=== PATIENT | female | born 1955 | race Caucasian/White ===

== ENCOUNTER 2016-06-24 19:15 | Emergency (ER) | payer OTHER ==
[2016-06-24 19:30] VITALS: BP 119/79
--- NOTE | 2016-06-24 19:37 | PROVIDER DOCUMENTATION ---
HPI-General Adult - General Chief Complaint: Extremity Injury Stated Complaint: FOOT INJURY Time Seen by Provider: 06/24/16 19:24 Source: patient Allergies/Adverse Reactions: Patient Allergies Allergy/AdvReac Type Severity Reaction Status Date / Time adhesive tape AdvReac HIVES Verified 06/24/16 19:30 Home Medications: Home Medication List Medication Instructions Recorded Confirmed Last Taken Type Duloxetine [Cymbalta] 60 mg PO DAILY 06/24/16 06/24/16 Unknown History Fentanyl 25 Microgm/Hr Patch 06/24/16 Unknown History [Duragesic 25 Microgm/Hr Patch] Lorazepam [Ativan] 0.5 mg PO 06/24/16 Unknown History Oxycodone/APAP 10 mg/325 mg 1 each PO Q4H PRN PRN #14 tablet 06/24/16 Unknown Rx [Percocet-10] Oxycodone/APAP 10 mg/325 mg 10 mg PO 06/24/16 Unknown History [Percocet-10] - History of Present Illness -Gen Adult Nature of Presenting Problems: Pt. is 61 yof that presents with c/o left foot pain. Pt. reports she stepped off of a curb last night and turned her left foot. Pt. denies any pain in the ankle bur states her foot is now swollen and bruised. Pt. reports no other injury and states she cannot walk on her foot. Location of Pain/Injury: reports: feet (Left). denies: head, face, mouth, neck , chest, upper extremity, hand(s), abdomen, back, pelvis, genitalia, lower extremity, upper body, lower body, generalized Pain Radiation: reports: no radiation Quality of Pain: reports: aching. denies: burning, cramping, dull, fullness, indigestion, pressure, sharp, stabbing, tearing, throbbing, tightness Severity: reports: moderate. denies: mild, severe Onset/Duration: reports: abrupt, last night Timing: reports: still present. denies: improving, gone now, resolved prior to arrival, intermittent, constant, changing over time, getting worse Context/Activities at Onset: reports: light activity, recent trauma history. denies: recent emotional stress, recent physical stress, possible bad food, cold exposure, out of country travel Modifying Factors: improves with: nothing Associated Symptoms: reports: joint pain, trouble walking. denies: anxiety, arm pain, back/neck pain, chest pain, constipation, cough, diaphoresis, diarrhea , dizziness, EENT symptoms, fatigue, fever/chills, genitourinary problems, headaches, heartburn, loss of appetite, malaise, muscle aches, sinus congestion/ drainage, nausea, rash, seizure, shortness of breath, sensory/motor loss, pain with inspiration, swelling/mass in abdomen, syncope, vomiting, weakness Similar Symptoms Previously?: Yes Recently seen or treated by another doctor?: No Review of Systems - Adult - REVIEW OF SYSTEMS - ADULT Constitutional: reports: see HPI. denies: chills, fever, fatique Eyes: reports: see HPI. denies: discharge, blurred vision, double vision Ears, Nose, Mouth & Throat: reports: see HPI. denies: ear discharge, ear pain, hearing loss, sinus problem, nose pain, loose teeth, mouth/dental pain, throat swelling Cardiovascular: reports: see HPI. denies: chest pain, irregular heart rate, orthopnea, syncope Respiratory: reports: see HPI. denies: cough, dyspnea on exertion, pleurisy, shortness of breath, wheezing Gastrointestinal: reports: see HPI. denies: abdominal pain, hematemesis, diarrhea, nausea, vomiting Genitourinary: reports: see HPI. denies: dysuria, discharge, hematuria, hesitency, urgency Musculoskeletal: reports: see HPI, bone pain (Left foot), joint pain (Left foot) . denies: back pain, muscle aches, neck pain Integumentary: reports: see HPI. denies: hives, itching, rash, skin thickening Neurological: reports: see HPI. denies: ataxia, headache/migraines, numbness, paresthesia, seizure, tremors Psychiatric: reports: see HPI. denies: anxiety, depression, emotional problems , insomnia, panic attacks, suicidal thoughts Past History - Adult - PAST MEDICAL HISTORY-ADULT Review of Records: reports: Old Records Reviewed, Nursing Assessment Review, Medications Reviewed, Social history reviewed & non-contributory. - IMMUNIZATION STATUS Childhood Immunizations: See Nurse Assessment Flu Vaccine: See Nurse Assessment - FAMILY HISTORY Family History: reviewed, not pertinent - SOCIAL HISTORY Smoking: cigarettes, greater than 1 pack/day Provider spent 3-5 mins advising pt. on dangers of tobacco.: Discussed the need to stop smoking. Physical Exam-General - PHYSICAL EXAM-ADULT Initial Vital Signs Reviewed: Yes - CONSTITUTIONAL General Appearance: alert, moderate distress, thin. negative: obese, anxious, lethargic, slow to respond, obtunded, combative - EYES Eyes: PERRL/EOMI, pink conjunctivae. negative: conjuctival exudate, scleral icterus, subconjunctival hemorrhage - HEAD, EARS, NOSE, MOUTH & THROAT HENMT: normocephalic/atraumatic, moist mucous membranes. negative: angioedema, frontal tenderness, maxillary tenderness - NECK Neck: non-tender, full range of motion, supple, normal inspection. negative: lymphadenopathy, trachial deviation, thyromegaly - RESPIRATORY Respiratory: lungs clear, normal breath sounds. negative: crackles, rales, rhonchi, stridor, wheezing - CARDIOVASCULAR Cardiovascular: normal peripheral pulses, regular rate, rhythm, no edema, no JVD , no murmur. negative: extra beats, friction rub, irregularly irregular - CHEST (BREASTS) Chest/Breast: deferred - GASTROINTESTINAL (ABDOMEN) Abdominal Exam: normal bowel sounds, non tender, soft. negative: distended, guarding, rigid, rebound, tenderness, hernia, mass - GENITOURINARY Female Genitalia/Pelvic Exam: deferred Rectal Exam: deferred Hemoccult Exam: deferred - LYMPHATIC Lymphatic: no adenopathy. negative: axilla node tender, cervical node tenderness - MUSCULOSKELETAL Back Exam: normal inspection, no CVA tenderness, no vertebral tenderness. negative: ecchymosis, scoliosis, swelling, vertebral tenderness Extremity: erythema (Left foot), inflammation (Left foot), swelling (Left foot) , tenderness (Left foot). negative: normal gait, normal inspection, deformity Peripheral Pulses: radial (R): 2+, radial (L): 2+ - SKIN Integumentary: normal color, normal turgor, warm/dry, ecchymosis (Left foot), erythema (Left foot), swelling (Left foot), tenderness (Left foot). negative: cyanosis, jaundice, mottled, pallor, petechiae, purpura, rash - NEUROLOGIC Neurologic: grossly normal, no motor/sensory deficits. negative: aphasia, facial droop, focal weakness, motor weakness, sensory deficit - PSYCHIATRIC Psych/Mental Status: normal mood/affect, normal thought content, normal thought process, oriented x 3. negative: anxious, paranoid, tearful Progress - PLAN OF CARE/RESULTS Progress/Plan/Lab Results: Discussed results and plan of care with patient. Patient agrees with plan and verbalizes understanding. Vital Signs Temp Pulse Resp BP Pulse Ox 06/24/16 19:24 98 F 86 18 119/79 99 adhesive tape Adverse Reaction (Verified 06/24/16 19:30) HIVES Duloxetine [Cymbalta] 60 mg PO DAILY 06/24/16 Fentanyl 25 Microgm/Hr Patch [Duragesic 25 Microgm/Hr Patch] 06/24/16 Lorazepam [Ativan] 0.5 mg PO 06/24/16 Oxycodone/APAP 10 mg/325 mg [Percocet-10] 10 mg PO 06/24/16 Orders Category Date Time Status FOOT COMPLETE LEFT [RAD] Stat Exams 06/24/16 19:32 Taken - XRAY 1 XRAY: Left XRAY Study: Foot XRAY Interpretation: Displaced Mid shaft Fx of the 5th metatarsal ([place]) Procedures - SPLINTING Left 5th Digit Other Location: Left 5th midshaft metatarsal Pre-Procedure Neurovascular Exam: Intact Splint Application (Hand-Made): Posterior OCL Applied By: ED Nurse Assisted By: Mid-level Post Procedure Neurovascular Exam: Intact Departure - Departure Time of Disposition Order: 20:43 DIAGNOSIS: Metatarsal bone fracture Qualifiers: Encounter type: initial encounter Metatarsal bone: fifth Fracture type: closed Fracture alignment: displaced Laterality: left Qualified Code(s): S92.352A - Displaced fracture of fifth metatarsal bone, left foot, initial encounter for closed fracture Disposition: HOME 01 Certified Medical Emergency: Emergent Condition: Stable Additional Instructions: Follow up with primary care physician Follow up with orthopedic physician Take medications as directed Elevate and ice affected limb several times per day Return to ED for any concerns or worsening of symptoms ED Follow Up Instructions: You have been treated by a care provider in the Emergency Department. These instructions are being provided to you so you can have an understanding of how to care for yourself upon discharge. Upon discharge from the Emergency Department, you are responsible for making arrangements for follow-up care by a physician of your choice. Take all prescribed medications as directed. Return to the Emergency Department immediately for any new or worsening symptoms. You may call the Physician Referral phone number at [phone] to obtain a list of Physicians who are taking new patients. Prescriptions: Oxycodone/APAP 10 mg/325 mg [Percocet-10] 1 each PO Q4H PRN PRN #14 tablet PRN Reason: Pain Referrals: Caity Desouza MD [Primary Care Provider] - Asad Gonsalves MD [STAFF PHYSICIAN] - Attestation - Physician/ INDERJIT Attestation Patient care was provided by Advanced Practice Provider:: Yes Advanced Practice Provider:: Lindy Mojica Advanced Practice Provider documentation review:: The Mid-level provider documentation, treatment plan and medical decision making was reviewed by the physician who agrees with all treatment and medical decision making by the MLP.
[2016-06-24] MEDS ORDERED: PERCOCET-10 PO ONE (20:42)
--- NOTE | 2016-06-25 09:34 | Diag Imaging Result Document ---
PROCEDURE NAME: FOOT COMPLETE LEFT - 06/24/2016 LEFT FOOT, 3 VIEWS: FINDINGS: There is a fracture of the distal 5th metacarpal. There is pes cavus. IMPRESSION: Fracture 5th metacarpal.
== END 2016-06-24 21:18 | disposition home or self-care (01) ==
LOC: P.ED 19:15
DX: S92.352A Displaced fracture of fifth metatarsal bone, left foot, initial encounter for closed fracture (principal); M79.672 Pain in left foot; F17.210 Nicotine dependence, cigarettes, uncomplicated; Z71.6 Tobacco abuse counseling; X58.XXXA Exposure to other specified factors, initial encounter; Z79.899 Other long term (current) drug therapy

== ENCOUNTER 2016-11-12 20:52 | Inpatient (IN) ==
--- NOTE | 2016-11-12 22:20 | Diag Imaging Result Doc PS360 ---
EXAM: RIBS UNILAT W/PA CHEST LEFT HISTORY: fall TECHNIQUE: Chest and left rib detail, three views COMPARISON: None. FINDINGS: No contusion or pneumothorax. The mediastinum is not widened. There has been prior surgery to the lower neck. There are multiple old left rib fractures. There are acute displaced fractures to the posterior lateral left fourth, fifth, sixth, and seventh ribs. IMPRESSION: Multiple new left rib fractures. Electronically signed by Manuel Mascorro 11/12/2016 10:18 PM
[2016-11-12] MEDS ORDERED: ZOFRAN IV ONE (22:38)
[2016-11-12] MEDS ORDERED: DILAUDID IV ONE (22:38)
[2016-11-12 23:27] LABS: MANUAL DIFF NEEDED? NO
--- NOTE | 2016-11-12 23:32 | Diag Imaging Result Doc PS360 ---
EXAM: CERVICAL SPINE W/O CONTRAST HISTORY: neck pain TECHNIQUE: COMPARISON: None. FINDINGS: There has been extensive surgery to the lower cervical spine with fusion of the lower three cervical vertebra. There is metallic artifact from an anterior plate and screws. There is mild scoliosis. No precervical soft tissue swelling. No subluxation. No fracture. No disc herniation. There are posterior bone spurs at C4-5 with at least mild spinal stenosis. IMPRESSION: 1.No fracture 2.No disc herniation 3.Scoliosis with degenerative changes and fusion of the lower three cervical vertebra Electronically signed by Manuel Mascorro 11/12/2016 11:30 PM
[2016-11-12 23:34] LABS: BASO% 0.2 % (0.0-0.8); HEMATOCRIT 41.7 % (37.0-47.0); HEMOGLOBIN 14.3 g/dL (12.0-16.0); IMM GRAN# 0.02 X1000 (0.0-0.04); IMM GRAN% 0.2 % (0.0-0.5); LYMPH% 14.6 % (20.5-51.1); MCH 32.3 PG (27-31); MCHC 34.3 g/dL (33-37); MCV 94.1 FL (81-99); MONO# 0.61 X1000 (0.11-0.59); MONO% 6.3 % (1.7-9.3); MPV 9.6 FL (7.4-10.4); NEUT% 78.7 % (42.2-75.2); PLT 224 X1000 (130-400); RBC 4.43 XMIL (4.2-5.4)
[2016-11-12 23:42] LABS: AGAP 13; BUN 13 mg/dL (8-22); CALCIUM 9.3 mg/dL (8.8-10.2); CHLORIDE 99 mmol/L (98-107); COSMO 271; SODIUM 135 mmol/L (136-145); TCO2 23 mmol/L (25-35)
--- NOTE | 2016-11-12 23:49 | PROVIDER DOCUMENTATION ---
This chart was entered by Meli Bill Scribe, acting as scribe for Hector Singh MD. HPI-Musculoskeletal Pain/Inj - GENERAL Chief Complaint: Fall Stated Complaint: FALL AT HOME Time Seen by Provider: 11/12/16 22:24 Source: patient - HX OF PRESENT ILLNESS-MUSKULOSKELTAL Nature of Presenting Problem: 61 year old F presents to the ED with a cc of a fall around 1800 this evening. Pt states that she was standing on a chair and fell off the chair landing on her left side. Pt c/o left elbow, back, and left rib pain. Quality of Pain: reports: aching Severity in ED: moderate Onset/Duration: this evening Timing: still present Modifying Factors: worse with: palpation, other (breathing) Any recent injury?: Yes Locality of [place]: Home Similar Symptoms Previously?: No Recently seen or treated by another doctor?: No - FALL INJURY Location of Pain/Injury: reports: neck, chest, upper extremity, back Reason for Fall: reports: lost balance Symptoms prior to fall:: reports: none Loss of Consciousness: no loss of consciousness Injury Associated Symptoms: reports: muscle aches, nausea, pain with inspiration Review of Systems - Adult - REVIEW OF SYSTEMS - ADULT Constitutional: reports: no symptoms reported Eyes: reports: no symptoms reported Ears, Nose, Mouth & Throat: reports: no symptoms reported Cardiovascular: denies: chest pain, palpitations Respiratory: denies: cough, shortness of breath Gastrointestinal: reports: nausea. denies: vomiting Musculoskeletal: reports: bone pain, joint pain. denies: muscle aches, muscle weakness Past History - Adult - PAST MEDICAL HISTORY-ADULT Review of Records: reports: Old Records Reviewed, Nursing Assessment Review, Medications Reviewed, Social history reviewed & non-contributory. Major Childhood Illnesses: reports: denies history - IMMUNIZATION STATUS Childhood Immunizations: See Nurse Assessment Flu Vaccine: See Nurse Assessment - FAMILY HISTORY Family History: reviewed, not pertinent Physical Exam-Injury Related - Physical Exam-Injury Related Initial Vital Signs Reviewed: Yes General Appearance: appears well, alert, no apparent distress Immobilization?: C-collar, applied in ED Eyes: PERRL/EOMI, pink conjunctivae Head, Ears, Nose, Mouth & Throat: moist mucous membranes Neck: C-spine tenderness Respiratory: lungs clear, normal breath sounds, rib tenderness (left lateral chest wall tenderness) Cardiovascular: normal peripheral pulses, regular rate, rhythm, no edema Abdominal Exam: non tender, soft Extremity: tenderness (left elbow) Integumentary: normal color, warm/dry Psych/Mental Status: normal mood/affect, normal thought content, normal thought process, oriented x 3 Progress - PLAN OF CARE/RESULTS Progress/Plan/Lab Results: Vital Signs - 8 hr 11/12/16 21:26 Temperature 99.5 F Pulse Rate 95 H Respiratory Rate 18 Blood Pressure 141/89 O2 Sat by Pulse Oximetry 92 L Laboratory Results - last 24 hr 11/12/16 11/12/16 23:10 23:10 WBC 9.62 RBC 4.43 Hgb 14.3 Hct 41.7 MCV 94.1 MCH 32.3 H MCHC 34.3 RDW Std Deviation 12.2 Plt Count 224 MPV 9.6 Immature Gran % (Auto) 0.2 Neut % (Auto) 78.7 H Lymph % (Auto) 14.6 L [place] % (Auto) 6.3 Eos % (Auto) 0.0 Baso % (Auto) 0.2 Immature Gran # (Auto) 0.02 Neut # (Auto) 7.57 H Lymph # (Auto) 1.40 [place] # (Auto) 0.61 H Eos # (Auto) 0.00 Baso # (Auto) 0.02 Sodium 135 L Potassium 4.0 Chloride 99 Carbon Dioxide 23 L Anion Gap 13 BUN 13 Creatinine 0.9 Estimated GFR/1.73 m2 > 60 BUN/Creatinine Ratio 14 Glucose 110 H Calculated Osmolality 271 Calcium 9.3 Orders Category Date Time Status Admit - [facility] Routine AdmDCTranf 11/13/16 00:40 Ordered Activity - Bed Rest with BRP ORDERED Care 11/13/16 00:40 Active Apply C-Collar DIRECTED Care 11/12/16 22:38 Active Resuscitation Status Routine Care 11/13/16 00:40 Ordered Saline Loc DIRECTED Care 11/13/16 00:40 Active Use Oxygen.Protocol ORDERED Care 11/12/16 22:42 Active Vital Signs Order Q 4-HR ASSESS Care 11/13/16 00:40 Active Heart Healthy Diet Diet 11/13/16 00:42 Active ADDITIONAL MPLANAR/3D RECONST [CT] Stat Exams 11/12/16 22:40 Taken CERVICAL SPINE W/O CONTRAST [CT] Stat Exams 11/12/16 22:[address] THORAX W/O CONTRAST [CT] Stat Exams 11/12/16 22:40 Completed LUMBAR SPINE W/O CONTRAST [CT] Stat Exams 11/12/16 22:39 Completed RIBS UNILAT W/PA CHEST LEFT [RAD] Stat Exams 11/12/16 21:28 Completed BMP [BASIC METABOLIC PANEL] [CHEM] Stat Lab 11/12/16 23:10 Completed CBC WITH ELECTRONIC DIFF [HEME] Stat Lab 11/12/16 23:10 Completed 0.9% Sodium Chloride Inj [Ns] 1,000 ml Med 11/13/16 00:40 Active IV 100 mls/hr Hydromorphone [Dilaudid] Med 11/13/16 00:40 Active 0.5 mg IV Q2H PRN PRN Hydromorphone [Dilaudid] Med 11/12/16 22:38 Discontinued 1 mg IV NOW ONE Ondansetron [Zofran] Med 11/12/16 22:38 Discontinued 4 mg IV NOW ONE Ondansetron [Zofran] Med 11/13/16 00:40 Active 4 mg IV Q4H PRN PRN Oxygen Device Routine Oth 11/13/16 00:41 Active Telemetry [OM.EQ] Routine Oth 11/13/16 00:40 Active Transfer/Admit Order [TRANSFER] Routine Transfer 11/13/16 00:45 Ordered Result Diagrams: 11/12/16 23:10 11/12/16 23:10 - XRAY 1 XRAY Study: Chest (ribs unilateral) Impression: Abnormal XRAY Interpretation: multiple new left rib fractures: Dr. Mascorro(radiologist) - CT/MRI 1 CT Study: Thorax Impression: Abnormal (multiple fractures involving the left 3rd-7th ribs: Dr. Mascorro(radiologist)) CT Results: multiple fractures involving the left 3rd-7th ribs: Dr. Mascorro( radiologist) 2 CT Study: Cervical Spine Impression: Normal (No fracture. No disc herniation. Scoliosis with degenerative changes and fusion of the lower three cervical vertebra: Dr. Mascorro( radiologist)) 3 CT Study: Lumbar Spine Impression: Normal CT Results: no acute bony injury: Dr. Mascorro(radiologist) - CONSULTS/PCP/HOSPITALIST Notification #1 *Consult/PCP/Hospitalist*: Dr. Dawit Time Discussed: 00:18 Consult Disposition: Admit Departure - Departure Date of Disposition Decision: 11/13/16 Time of Disposition Decision: 00:50 DIAGNOSIS: Multiple fractures of ribs of left side Qualifiers: Encounter type: initial encounter Fracture type: closed Qualified Code(s): S22.42XA - Multiple fractures of ribs, left side, initial encounter for closed fracture Left pulmonary contusion Qualifiers: Encounter type: initial encounter Qualified Code(s): S27.321A - Contusion of lung, unilateral, initial encounter Disposition: ADMITTED INPATIENT 09 Certified Medical Emergency: Emergent Condition: Stable Referrals and Follow-Ups: Caity Desouza MD [Primary Care Provider] - - Critical Care Note This patient required my direct & personal management of CC.: Yes This chart was documented by the indicated scribe, (Meli Bill Scribe) and accurately reflects the services I performed and decisions made by me, Hector Singh MD, as attested by the provider's signature.
--- NOTE | 2016-11-12 23:53 | Diag Imaging Result Doc PS360 ---
EXAM: CT THORAX W/O CONTRAST HISTORY: left rib fractures TECHNIQUE: COMPARISON: None. FINDINGS: There are emphysematous changes. No pneumothoraces. Trace left pleural fluid or pleural thickening. No cardiomegaly. There are scattered calcified lymph nodes with multiple scattered calcified granuloma. There is a nondisplaced fracture to the posterior left third rib and fourth rib. There is also a nondisplaced fracture laterally involving the third rib and a displaced fracture laterally to the fourth rib. The fifth, sixth, and seventh ribs are also fractured laterally. Tiny lateral left lung contusion. IMPRESSION: Multiple fractures involving the left third through seventh ribs. Electronically signed by Manuel Mascorro 11/12/2016 11:51 PM
--- NOTE | 2016-11-12 23:57 | Diag Imaging Result Doc PS360 ---
EXAM: LUMBAR SPINE W/O CONTRAST HISTORY: fall,back pain TECHNIQUE: COMPARISON: None. FINDINGS: There has been prior fusion of the L4 and L5 vertebra. There is metallic artifact created by the orthopedic hardware. Degenerative bone spurring is found throughout the lumbar spine. No subluxation. No compressed vertebra. No other fracture. No disc herniation identified although there is spinal stenosis at L3-L4 primarily due to facet hypertrophy. IMPRESSION: No acute bony injury. Electronically signed by Manuel Mascorro 11/12/2016 11:55 PM
[2016-11-13] MEDS ORDERED: NS 1,000 ML IV ONE (00:40)
[2016-11-13] MEDS: DILAUDID IV PRN ×7 (01:49→20:49)
--- NOTE | 2016-11-13 06:00 | Diag Imaging Result Doc PS360 ---
EXAM: ADDITIONAL MPLANAR/3D RECONST Thoracic Spine HISTORY: back pain TECHNIQUE: COMPARISON: None. FINDINGS: Mild scoliosis. No compressed vertebra. No other fracture to the thoracic spine. Mild degenerative changes. Left rib fractures are again demonstrated. IMPRESSION: No fracture to the thoracic spine. Electronically signed by Manuel Mascorro 11/13/2016 5:57 AM
[2016-11-13] MEDS ORDERED: DILAUDID IV PRN (07:07)
[2016-11-13] MEDS: PRILOSEC PO SCH (11:51)
[2016-11-13] MEDS: PERCOCET-10 PO PRN ×2 (12:15→12:23)
[2016-11-13] MEDS: ZOFRAN IV PRN ×2 (13:38→18:22)
[2016-11-13] MEDS ORDERED: NICODERM PATCH TD ONE (13:49)
--- NOTE | 2016-11-13 15:47 | HISTORY AND PHYSICAL ---
PRIMARY CARE PHYSICIAN: Dr. Caity Desouza. CHIEF COMPLAINT: Fall, left side pain. HISTORY OF PRESENT ILLNESS: This is a 61-year-old female with a history of chronic back pain who presented to the emergency room after falling out of a chair landing on her left side. She was found to have multiple fractures involving the left 3rd through 7th ribs as well as a tiny lateral left lung contusion. She was given Dilaudid in the emergency room and is being admitted for further evaluation and treatment. PAST MEDICAL HISTORY: Chronic back pain and arthritis. PAST SURGICAL HISTORY: Tubal ligation, tonsillectomy and back surgeries. SOCIAL HISTORY: She smokes daily. She denies alcohol or illicit drug use. ALLERGIES: Adhesive tape which gives her hives. HOME MEDICATIONS: Imitrex 50 mg p.o. b.i.d. p.r.n., Ativan 0.5 mg daily, Neurontin 300 mg b.i.d., Cymbalta 60 mg daily, Percocet 10/325 one q.4 hours p.r.n. pain, Duragesic 25 mcg per hour patch 1 every 3 days, Soma 1 at bedtime. REVIEW OF SYSTEMS: 14 point review of systems is discussed with patient with pertinent positives being left-sided pain. She denies any chest wall pain, palpitations, dizziness, syncope, any PND, orthopnea, any nausea, vomiting, diarrhea, constipation black or bloody vomitus black or bloody stools, hematuria, dysuria, frequency, urgency. PHYSICAL EXAMINATION: GENERAL: This is a 61-year-old female who is sitting up in the bed, in no distress. HEENT: Head is normocephalic, atraumatic. Pupils equal, round, react to light. EOMs are intact. Sclerae anicteric. Mucous membranes are moist. NECK: Supple with trachea midline. CARDIOVASCULAR: Regular rate and rhythm. S1 and S2 are appreciated. PULMONARY: Breath sounds are clear. Diminished on the left with no increased work of breathing noted. Chest does rise and fall symmetrically with respiration. GASTROINTESTINAL: Abdomen soft, nontender, nondistended with bowel sounds in all 4 quadrants. EXTREMITIES: No clubbing, cyanosis, or edema. Pulses are palpable x4. Calves nontender. NEUROLOGIC: She is alert and oriented x3. DIAGNOSTICS: WBC is 9.6 with hemoglobin 14.3, hematocrit 41.7 and platelets of 224,000. Sodium is 135, potassium 4, BUN 13, creatinine 0.9 with glucose of 110. Chest CT reveals multiple fractures involving the left 3rd through 7th ribs as well as a tiny left lateral lung contusion. CT of the lumbar spine reveals no acute bony injury. CT of the cervical spine revealed no fracture, no disk herniation, scoliosis with degenerative changes and fusion of the lower 3 cervical vertebra. Chest x-ray with ribs revealed multiple new left rib fractures. ASSESSMENT AND PLAN: 1. Multiple left rib fractures status post fall. 2. Tiny left lung contusion. 3. Chronic pain. PLAN: She will be admitted to the hospital. Placed on telemetry. Will give supplemental oxygen as needed. Will start incentive spirometer and encourage deep breaths every hour. We will continue her home pain medication and we can supplement with small amount of IV pain medicine as needed. For DVT prophylaxis will use SCDs holding off any anticoagulation the recent fall and for GI prophylaxis Prilosec. Dictated by MICHAEL Reed for Osmel Pastor MD cc: MICHAEL Reed MD
[2016-11-13] MEDS: NEURONTIN PO SCH ×2 (20:51→21:16)
[2016-11-13] MEDS: SOMA PO SCH (20:51)
[2016-11-13] MEDS: ATIVAN PO SCH (21:36)
[2016-11-14] MEDS: ZOFRAN IV PRN ×4 (00:09→20:25)
[2016-11-14] MEDS: DILAUDID IV PRN ×7 (00:09→17:19)
[2016-11-14] MEDS: PRILOSEC PO SCH (06:21)
--- NOTE | 2016-11-14 08:11 | PROGRESS NOTE ---
DATE: 11/14/2016 SUBJECTIVE: Patient still with significant pain with any type of movement. OBJECTIVE: Vital signs: Temperature 97, pulse 73, respiratory rate 18, BP 122/73, saturation 98% on room air. General: Patient is awake, alert. She is currently in no respiratory distress but she is in obvious pain with any type of deep breathing or movement. HEENT: Normocephalic, atraumatic. EBONIE. Neck: Supple. CV: Regular rate. Chest: Decreased breath sounds secondary to voluntarily shallow breathing due to pain. Otherwise clear. Abdomen: Soft. Extremities: Moves all extremities. Neurologic: No changes. LABS: Reviewed. ASSESSMENT: 1. Multiple rib fractures on the left status post fall. 2. Tiny left lung contusion. We will repeat chest x-ray. 3. Known chronic pain which is certainly making pain control more difficult. PLAN: We will add Toradol. Will continue to assist. The patient unfortunately is in too much pain to be discharged home today. We will continue to follow. Continue her home medications. May certainly need to increase her fentanyl patch to 50. cc: Osmel Pastor MD
[2016-11-14] MEDS: NEURONTIN PO SCH ×2 (08:15→20:25)
[2016-11-14] MEDS: CYMBALTA PO SCH (08:15)
[2016-11-14] MEDS: NICODERM PATCH TD SCH (08:16)
[2016-11-14] MEDS: TORADOL IV PRN ×3 (08:25→20:25)
--- NOTE | 2016-11-14 08:27 | EKG Report ---
Test Performed on : 11/14/2016 07:17:32 AM Test Reason : r/o afib Blood Pressure : / mmHG Vent. Rate : 075 BPM Atrial Rate : 075 BPM P-R Int : 128 ms QRS Dur : 074 ms QT Int : 386 ms P-R-T Axes : 067 032 055 degrees QTc Int : 431 ms Normal sinus rhythm. Normal ECG No previous ECGs available Confirmed by Neeraj Diaz MD ([id number]) on 11/28/2016 10:16:32 PM
[2016-11-14] MEDS ORDERED: ATIVAN PO SCH (09:00)
[2016-11-14] MEDS: ATIVAN PO SCH (20:25)
[2016-11-14] MEDS: SOMA PO SCH (20:25)
[2016-11-15] MEDS: ZOFRAN IV PRN ×4 (04:05→21:45)
[2016-11-15] MEDS: TORADOL IV PRN ×4 (04:05→23:01)
[2016-11-15] MEDS: DILAUDID IV PRN ×8 (04:05→23:08)
[2016-11-15] MEDS: PRILOSEC PO SCH (07:14)
[2016-11-15 08:03] LABS: HEMOGLOBIN 12.3 g/dL (12.0-16.0); MCH 31.8 PG (27-31); MCHC 33.2 g/dL (33-37); MCV 95.6 FL (81-99); MPV 9.3 FL (7.4-10.4); RBC 3.87 XMIL (4.2-5.4)
--- NOTE | 2016-11-15 08:10 | Diag Imaging Result Doc PS360 ---
CHEST-2 VIEWS - 11/15/2016 INDICATION: hypoxia TECHNIQUE: COMPARISON: 11/12/2016 FINDINGS: Stable COPD changes. Stable mild pulmonary scarring in the lung bases. No focal infiltrates, pneumothorax, or pleural effusion. Heart size is normal. IMPRESSION: COPD with pulmonary scarring. No change from prior. Electronically signed by Tae Vaughn 11/15/2016 8:08 AM
[2016-11-15 08:27] LABS: ALBUMIN 3.2 g/dL (3.5-5.0); CALCIUM 8.6 mg/dL (8.8-10.2); TOTAL BILIRUBIN 0.3 mg/dL (0.20-1.00); TOTAL PROTEIN 6.2 g/dL (6.3-8.3)
[2016-11-15] MEDS: NICODERM PATCH TD SCH (08:40)
[2016-11-15] MEDS: NEURONTIN PO SCH ×2 (08:40→21:45)
[2016-11-15] MEDS: CYMBALTA PO SCH (08:40)
[2016-11-15] MEDS ORDERED: NS 1,000 ML IV SCH (14:31)
[2016-11-15] MEDS: LOVENOX SUBQ SCH (15:08)
--- NOTE | 2016-11-15 17:44 | PROGRESS NOTE ---
DATE: 11/15/2016 SUBJECTIVE: Patient states she is still having significant pain with any type of movement. OBJECTIVE: Vital Signs: Temperature 97.7 degrees, pulse 84, respirations 16, blood pressure 121/89, saturating 97% on room air. General: This is a 61-year-old female, sitting up in the bed, answers questions appropriately. HEENT: Normocephalic and atraumatic. Pupils are equal, round, reactive to light. Extraocular movements are intact. Oropharynx and nares are clear. Neck: Supple. Lungs: Clear to auscultation bilaterally with equal lung expansion and chest wall movement. Heart: With regular rate and rhythm. No murmurs, rubs, or gallops. Abdomen: Soft, nontender, nondistended. Bowel sounds are present x4 quadrants. Extremities: There is no clubbing, cyanosis, or edema. Neurological: The cranial nerves 2 through 12 appear grossly intact. LABORATORY DATA: Showed a white blood cell count of 7.15, hemoglobin 12.3, hematocrit 37, platelets 166,000. Sodium of 131, potassium 4.0, chloride 97, CO2 28, BUN of 10 , creatinine 1.0, glucose 91. Chest x-ray this a.m., COPD with pulmonary scarring; no change from prior. ASSESSMENT: 1. Multiple rib fractures on the left status post fall. 2. Tiny left lung contusion. 3. Known chronic pain. PLAN: We will continue her current pain regimen. We added Toradol yesterday and she states she has been able rest a little bit more, sleeping approximately 3 hours last night and has been napping on an off today, but still has significant pain with movement. We will continue her pain regimen at this time. We will plan for discharge in the a.m. Dictated by MICHAEL Rasheed for Ted Llamas MD cc: MICHAEL Rasheed MD pt examined, agree with above APENOT MTDD
[2016-11-15] MEDS: SOMA PO SCH (21:45)
[2016-11-15] MEDS: ATIVAN PO SCH (21:45)
[2016-11-16] MEDS: ZOFRAN IV PRN (04:45)
[2016-11-16] MEDS: DILAUDID IV PRN ×5 (04:45→22:18)
[2016-11-16] MEDS: TORADOL IV PRN ×3 (04:45→20:44)
[2016-11-16] MEDS: PRILOSEC PO SCH ×2 (05:57→06:17)
[2016-11-16] MEDS ORDERED: DURAGESIC 25 MICROGM/HR PATCH TD SCH (06:00)
[2016-11-16 06:27] LABS: HEMATOCRIT 33.4 % (37.0-47.0); MCH 31.5 PG (27-31); MCHC 32.9 g/dL (33-37); MCV 95.7 FL (81-99); MPV 9.3 FL (7.4-10.4); RBC 3.49 XMIL (4.2-5.4)
[2016-11-16 06:46] LABS: AGAP 6; BUN 13 mg/dL (8-22); CALCIUM 7.9 mg/dL (8.8-10.2); CHLORIDE 102 mmol/L (98-107); COSMO 270; POTASSIUM 4.1 mmol/L (3.5-5.1); SODIUM 135 mmol/L (136-145); TCO2 27 mmol/L (25-35)
[2016-11-16] MEDS: CYMBALTA PO SCH (08:37)
[2016-11-16] MEDS: NICODERM PATCH TD SCH (08:37)
[2016-11-16] MEDS: NEURONTIN PO SCH ×2 (08:38→20:31)
[2016-11-16] MEDS: PERCOCET-10 PO PRN (08:38)
[2016-11-16] MEDS: LIDODERM TOP SCH (12:43)
[2016-11-16] MEDS: LOVENOX SUBQ SCH (14:51)
[2016-11-16] MEDS: MIRALAX PO SCH (17:08)
[2016-11-16] MEDS: LACTULOSE PO SCH (20:30)
[2016-11-16] MEDS: SOMA PO SCH (20:30)
[2016-11-16] MEDS: ATIVAN PO SCH (20:30)
--- NOTE | 2016-11-16 20:38 | PROGRESS NOTE ---
DATE: 11/16/2016 SUBJECTIVE: Patient has no focal complaints. OBJECTIVE: Vital signs: Blood pressure 127/76, heart rate of 99, respiratory rate 18, temperature 98.1 degrees. General: A well-developed female, no acute distress. Head: Normocephalic, atraumatic. Eyes: Pupils equal, round, reactive to light. Extraocular movements were intact. Ear/nose/throat: Moist mucous membranes. Neck: Supple. Cardiovascular: Regular rate and rhythm. No murmurs, gallops, or rubs. Pulmonary: Bilateral breath sounds. Clear to auscultation. GI: Soft, nontender, nondistended. Bowel sounds are positive. LABORATORY DATA: Sodium is up to 135. PROBLEM LIST: 1. Multiple rib fractures. Continue pain control. Clinically, she appears to be well. 2. Chronic obstructive pulmonary disease appears to be stable. 3. Hyponatremia has improved with volume resuscitation. DISPOSITION: Her pain I think is going to be an issue, but I think she is probably stable to go home here soon. Anticipate discharge tomorrow if stable. cc: Ted Llamas MD
[2016-11-17] MEDS: DILAUDID IV PRN (04:37)
[2016-11-17] MEDS: PRILOSEC PO SCH (05:59)
[2016-11-17 06:41] LABS: AGAP 6; BUN 11 mg/dL (8-22); CALCIUM 8.5 mg/dL (8.8-10.2); CHLORIDE 102 mmol/L (98-107); COSMO 269; POTASSIUM 4.3 mmol/L (3.5-5.1); SODIUM 135 mmol/L (136-145); TCO2 27 mmol/L (25-35)
[2016-11-17 08:01] VITALS: BP 131/87
[2016-11-17] MEDS: CYMBALTA PO SCH (08:27)
[2016-11-17] MEDS: LACTULOSE PO SCH (08:27)
[2016-11-17] MEDS: PERCOCET-10 PO PRN ×2 (08:27→12:37)
[2016-11-17] MEDS: MIRALAX PO SCH (08:28)
[2016-11-17] MEDS: LIDODERM TOP SCH (08:28)
[2016-11-17] MEDS: NEURONTIN PO SCH (08:28)
[2016-11-17] MEDS: NICODERM PATCH TD SCH (08:29)
[2016-11-17] MEDS ORDERED: FLEET ENEMA PR PRN (08:35)
[2016-11-17] MEDS: TORADOL IV PRN (08:36)
--- NOTE | 2016-12-24 23:18 | DISCHARGE SUMMARY ---
ADMISSION DATE: 11/14/2016 DISCHARGE DATE: 11/17/2016 DISCHARGE DIAGNOSES: 1. Multiple rib fractures. 2. Chronic obstructive pulmonary disease. 3. Hyponatremia. CONSULTATIONS: None. IMAGING: CT scan cervical spine 11/12/2016 showed scoliosis but no fracture. Lumbar spine showed no acute bony injury. Chest CT showed multiple fractures involving the left 3rd through 7th ribs. HISTORY OF PRESENT ILLNESS: Briefly, this is a 61-year-old female who sustained fall, chronic back pain. Had multiple rib fracture. Was put in the hospital for pain control. She was given pain control, incentive spirometry. Slowly improved. She had a lot issues completely getting her pain control. She feels a little bit better by the . She was felt stable to go home. DISCHARGE MEDICATIONS: Soma 250 at bedtime, Cymbalta 60 daily, fentanyl patch 25 72, Neurontin 300 b.i.d., Ativan 0.5 daily, Percocet 1 p.o. q.4 hours p.r.n. pain, MiraLAX 17 daily and Imitrex p.r.n. Follow up in 1-2 weeks. cc: MD Ted Neri MD
== END 2016-11-17 13:52 | disposition home or self-care (01) ==
LOC: P.MEDSURG 20:52 → P.ED 20:52 → SUATTDRO 11-14 13:23
PROVIDERS: ATTEND Internal Medicine